=== PATIENT | female | born 1960 | race Caucasian/White ===

== ENCOUNTER 2018-08-03 00:04 | Emergency (ER) | payer OTHER ==
[~2018-08-03] VITALS: Ht 149.9 cm; Wt 63.5 kg
[2018-08-03 00:07] VITALS: Ht 149.9 cm; Wt 63.5 kg
[2018-08-03 04:41] LABS: UA SPECIFIC GRAVITY 1.015 (1.005-1.035); microscopic required? YES; urine erythrocyte TRACE (NEGATIVE)
[2018-08-03 06:26] VITALS: BP 106/62
== END 2018-08-03 06:26 | disposition home or self-care (01) ==
LOC: ED 00:04
PROVIDERS: Emergency Medicine
DX: G89.29 Other chronic pain (principal); M54.9 Dorsalgia, unspecified; R10.11 Right upper quadrant pain; R10.12 Left upper quadrant pain; E11.9 Type 2 diabetes mellitus without complications; E78.00 Pure hypercholesterolemia, unspecified; Z98.890 Other specified postprocedural states
CPT/HCPCS: J1885; Q0092